=== PATIENT | female | born 1950 | race Caucasian/White ===

== ENCOUNTER → 2022-06-15 09:03 | Outpatient (CLI) | payer MEDICARE, SELFPAY ==
[2022-06-15 10:35] LABS: INR 4.5 (0.9-1.3); Prothrombin Time 52.2 SECONDS (10.1-12.7)
== END ==
PROVIDERS: Referring Provider Internal Medicine Cardiovascular Disease; Visit Provider Internal Medicine Cardiovascular Disease
DX: I48.91 Unspecified atrial fibrillation (principal)
CPT/HCPCS: 36415; 85610